=== PATIENT | female | born 1950 | race Two or more races ===

== ENCOUNTER → 2018-07-29 | Outpatient (CLI) | payer MEDICARE, OTHER ==
[2015-12-16 22:17] VITALS: BP 150/72
[~2018-07-29] MED LIST: ASPI81TA50 PO; ATOR20TA58 PO; CHOL2000 PO; CINN500C2 PO; CLOB15OI TP; DICL100G18 TP; ESTR42.53 VG; FESO8TAB PO; FEXO180T81 PO; IBUP-1060 PO; LISI1TAB5 PO; MELA3TAB2 PO; OMEP20CA9 PO; OMEP20TA8 PO; OXYB5TAB7 PO; OXYC-327 PO; SAXA5TAB PO
[2018-07-29 09:49] LABS: ALBUMIN 3.8 g/dL (3.4-5.0); CALCIUM 10.4 mg/dL (8.5-10.1); CREATININE 0.9 mg/dL (0.6-1.0); GFR 62.6; POTASSIUM 4.9 mmol/L (3.5-5.1)
[2018-07-29 10:02] LABS: BASO # 0.1 x10^3/uL (0.0-0.2); BASO % 1 % (0-3); EOS # 0.2 x10^3/uL (0.0-0.7); EOS % 3 % (0-3); HEMATOCRIT 39.4 % (36.0-47.0); HEMOGLOBIN 13.8 g/dL (12.0-15.5); LYMPH # 1.8 x10^3/uL (1.0-4.8); LYMPH % 25 % (24-48); MEAN CORPUSCULAR HEMOGLOBIN 31 pg (25-35); MEAN CORPUSCULAR HGB CONC 35 g/dL (31-37); MEAN CORPUSCULAR VOLUME 90 fL (79-100); MONO # 0.9 x10^3/uL (0.0-1.1); MONO % 12 % (0-9); NEUT # 4.3 x10^3uL (1.8-7.7); NEUT % 60 % (31-73); PLATELET COUNT 308 x10^3/uL (140-400); RED CELL DISTRIBUTION WIDTH 13.4 % (11.5-14.5); WHITE BLOOD COUNT 7.2 x10^3/uL (4.0-11.0)
[2018-07-29 10:16] LABS: PROTHROMBIN TIME PATIENT 12.1 SEC (11.7-14.0)
[2018-07-29 12:06] LABS: BILIRUBIN,URINE NEGATIVE (NEG); CLARITY,URINE CLEAR; COLOR,URINE YELLOW; NITRITE,URINE NEGATIVE (NEG); PH,URINE 5.5; PROTEIN,URINE NEGATIVE (NEG-TRACE); UROBILINOGEN,URINE 0.2 mg/dL (0.2 mg/dL)
[2018-07-29 12:14] LABS: BACTERIA,URINE 0 /HPF (0-FEW); RBC,URINE 0 /HPF (0-2); SQUAMOUS EPITHELIAL CELL,UR FEW /LPF
--- NOTE | 2018-07-29 12:29 | EKG ---
[facility] [address] [place] [address] Test Date: 2018-07-29 Test Time: 12:14:45 Pat Name: EUN GRAY Department: Room: Gender: F Flooring Sales Manager: : 1950 Requested By: JOCE LYNCH Order Number: [id number] Reading MD: Jayden Tubbs MD Measurements Intervals [place] Rate: 70 P: -14 IA: 162 QRS: 25 QRSD: 82 T: 40 QT: 386 QTc: 420 Interpretive Statements SINUS RHYTHM Electronically Signed On 08-01-2018 11:46:56 CDT by Jayden Tubbs MD
--- NOTE | 2018-07-29 13:15 | RAD ---
AP and Lateral Views of the Chest 07/29/2018 7:55 AM Indication: PRE OP FOR LEFT KNEE REPLACEMENT ON 08/13/18 Comparison: None Findings: There is no focal consolidation or infiltrate identified. The cardiomediastinal silhouette is within normal limits. There is no evidence of pneumothorax or pleural effusion. No acute osseous abnormalities are identified. Impression: No evidence of acute cardiopulmonary process. Electronically signed by: Luis Bailey MD (07/29/2018 1:11 PM) [id number]
[2018-07-29 23:11] LABS: HEMOGLOBIN A1C 6.8 % (4.8-5.6)
== END | disposition home or self-care (01) ==
LOC: SURGPAT 12:51
PROVIDERS: ATTEND Orthopaedic Surgery
DX: Z01.818 Encounter for other preprocedural examination (principal); M17.12 Unilateral primary osteoarthritis, left knee; I10 Essential (primary) hypertension
CPT/HCPCS: 36415; 71046; 80048; 81001; 82040; 82306; 83036; 85025; 85610; 85651; 85730; 87086; 87641; 93005

== ENCOUNTER → 2018-08-20 | Outpatient (CLI) | payer OTHER, MEDICARE ==
[2018-08-16 15:30] VITALS: BP 98/59
[~2018-08-20] MED LIST changes: +CELE200C PO; +TRAM50TA PO
--- NOTE | 2018-08-20 14:31 | RAD ---
Left lower extremity venous duplex study 08/20/2018 Clinical History: Lower extremity pain Technique: Using a combination of real time ultrasound imaging and color-flow and pulse Doppler imaging techniques, including spectral analysis, graded compression and augmentation, duplex evaluation of the deep venous system of the left lower extremity was performed. Multiple images were obtained. Findings: There is no sonographic evidence of deep venous thrombosis involving the visualized deep venous structures of the left lower extremity. Small left popliteal fossa cyst noted measuring 3.9 x 1.7 x 1.0 cm. Impression: No evidence of deep venous thrombosis involving the left lower extremity Electronically signed by: Luis Bailey MD (08/20/2018 2:27 PM) [id number]
== END | disposition home or self-care (01) ==
LOC: US 13:15
PROVIDERS: ATTEND Orthopaedic Surgery
DX: M79.662 Pain in left lower leg (principal); R22.42 Localized swelling, mass and lump, left lower limb
CPT/HCPCS: 93971

== ENCOUNTER → 2019-05-14 | Outpatient (CLI) | payer OTHER ==
[2018-08-16 15:30] VITALS: BP 98/59
[~2019-05-14] MED LIST changes: +LATA2.5D3 EACHEYE; +LISI-130 PO; +OMEP20CA10 PO; -OMEP20CA9 PO; -OXYC-327 PO; +OXYC1TAB19 PO
[2019-05-14 14:23] LABS: BILIRUBIN,URINE NEGATIVE (NEG); CLARITY,URINE CLEAR; COLOR,URINE YELLOW; NITRITE,URINE NEGATIVE (NEG); PH,URINE 5.5; PROTEIN,URINE NEGATIVE (NEG-TRACE); UROBILINOGEN,URINE 0.2 mg/dL (0.2 mg/dL)
[2019-05-14 14:24] LABS: BASO % 1 % (0-3); EOS # 0.3 x10^3/uL (0.0-0.7); EOS % 3 % (0-3); HEMOGLOBIN 14.5 g/dL (12.0-15.5); LYMPH # 1.6 x10^3/uL (1.0-4.8); LYMPH % 20 % (24-48); MEAN CORPUSCULAR HEMOGLOBIN 30 pg (25-35); MEAN CORPUSCULAR HGB CONC 35 g/dL (31-37); MEAN CORPUSCULAR VOLUME 88 fL (79-100); MONO # 0.7 x10^3/uL (0.0-1.1); MONO % 8 % (0-9); NEUT # 5.7 x10^3/uL (1.8-7.7); NEUT % 69 % (31-73); PLATELET COUNT 264 x10^3/uL (140-400); RED BLOOD COUNT 4.76 x10^6/uL (3.50-5.40); RED CELL DISTRIBUTION WIDTH 12.7 % (11.5-14.5); WHITE BLOOD COUNT 8.3 x10^3/uL (4.0-11.0)
[2019-05-14 14:30] LABS: CALCIUM 10.5 mg/dL (8.5-10.1); CREATININE 0.8 mg/dL (0.6-1.0); GFR 71.5; POTASSIUM 4.2 mmol/L (3.5-5.1); PROTHROMBIN TIME PATIENT 12.7 SEC (11.7-14.0)
[2019-05-14 14:33] LABS: BACTERIA,URINE MODERATE /HPF (0-FEW); RBC,URINE 0 /HPF (0-2); SQUAMOUS EPITHELIAL CELL,UR MANY /LPF
[2019-05-15 03:13] LABS: HEMOGLOBIN A1C 7.1 % (4.8-5.6)
== END | disposition home or self-care (01) ==
LOC: SURGPAT 13:13
PROVIDERS: ATTEND Orthopaedic Surgery
DX: Z01.818 Encounter for other preprocedural examination (principal); M17.11 Unilateral primary osteoarthritis, right knee
CPT/HCPCS: 36415; 80048; 81001; 82306; 83036; 85025; 85610; 85651; 85730; 87086; 87641

== ENCOUNTER → 2019-06-16 | Outpatient (CLI) | payer OTHER ==
[2019-06-06 13:06] VITALS: BP 147/72
[~2019-06-16] MED LIST changes: +ASPI325T11 PO; +LISI1TAB19 PO; -LISI1TAB5 PO; -MELA3TAB2 PO; +MELA3TAB56 PO; +MELO15TA23 PO; +OXYC1TAB15 PO
--- NOTE | 2019-06-16 15:50 | RAD ---
CLINICAL HISTORY: Right lower extremity swelling, right total knee arthroplasty COMPARISON: None available. TECHNIQUE: Ultrasound evaluation of the right lower extremity was performed from the groin to the upper calf with meneses scale, spectral and color doppler evaluation. FINDINGS: The right common femoral vein, and femoral vein, including the saphenous-femoral junction are normal in appearance. Color and spectral Doppler evaluation demonstrates normal spontaneous flow, augmentation and phasicity. The right popliteal vein and visualized calf veins also demonstrate normal compressibility and flow. IMPRESSION: No evidence for right lower extremity DVT Electronically signed by: Clement Cordero MD (06/16/2019 3:47 PM) [facility]
== END | disposition home or self-care (01) ==
LOC: US 12:25
PROVIDERS: ATTEND Physician Assistant
DX: M79.89 Other specified soft tissue disorders (principal); M17.11 Unilateral primary osteoarthritis, right knee
CPT/HCPCS: 93971

== ENCOUNTER 2019-06-24 02:44 | Emergency (ER) | payer OTHER, MEDICARE ==
[~2019-06-24] VITALS: Ht 160 cm; Wt 98.0 kg
--- NOTE | 2019-06-24 03:12 | PHYS DOC ---
Past Medical History Past Medical History: Diabetes-Type II Past Surgical History: No Surgical History Alcohol Use: None Drug Use: None Adult General Chief Complaint Chief Complaint: KNEE SWELLING HPI HPI 69-year-old female presents to the emergency department with complaints of right lower sternal area pain, swelling. Patient reports right total knee arthroplasty 3 weeks ago. She states she was seen in follow-up on June 02 dressings were removed at that time, Steri-Strips are in place. She had evidence of cellulitis at that time was prescribed antibiotic therapy. She states pain is worsened primarily popliteal and some swelling. She does have redness to her lower extremity. No fever. + nausea. She denies chest pain or SOB on exam. Review of Systems Review of Systems Constitutional: Denies fever, + chills Respiratory: Denies cough or shortness of breath [] Cardiovascular: No additional information not addressed in HPI [] GI: Denies abdominal pain, nausea, vomiting, bloody stools or diarrhea [] Musculoskeletal: right leg pain, + redness to skin, trace edema Integument: Denies rash or skin lesions [] Neurologic: Denies headache, focal weakness or sensory changes [] All other systems were reviewed and found to be within normal limits, except as documented in this note. Allergies Allergies Allergies Coded Allergies Type Severity Reaction Last Updated Verified hydrochlorothiazide Allergy Intermediate HYPERPARATHYROID DISEASE 06/03/19 Yes Physical Exam Physical Exam Constitutional: Well developed, well nourished, no acute distress, non-toxic appearance. [] HENT: Normocephalic, atraumatic, bilateral external ears normal, oropharynx moist, no oral exudates, nose normal. [] Cardiovascular:Heart rate regular rhythm, no murmur [] Lungs & Thorax: Bilateral breath sounds clear to auscultation [] Abdomen: Bowel sounds normal, soft, no tenderness, no masses, no pulsatile masses. [] Skin: Warm, dry, no erythema, no rash. [] Back: No tenderness, no CVA tenderness. [] Extremities: No tenderness, no cyanosis, no clubbing, ROM intact, no edema. [] Neurologic: Alert and oriented X 3, normal motor function, normal sensory fu nction, no focal deficits noted. [] Psychologic: Affect normal, judgement normal, mood normal. [] Current Patient Data Lab Values Laboratory Tests Test 06/24/19 03:05 White Blood Count 7.1 x10^3/uL (4.0-11.0) Red Blood Count 3.97 x10^6/uL (3.50-5.40) Hemoglobin 12.1 g/dL (12.0-15.5) Hematocrit 35.5 % (36.0-47.0) L Mean Corpuscular Volume 90 fL (79-100) Mean Corpuscular Hemoglobin 31 pg (25-35) Mean Corpuscular Hemoglobin Concent 34 g/dL (31-37) Red Cell Distribution Width 14.0 % (11.5-14.5) Platelet Count 411 x10^3/uL (140-400) H Neutrophils (%) (Auto) 59 % (31-73) Lymphocytes (%) (Auto) 22 % (24-48) L Monocytes (%) (Auto) 12 % (0-9) H Eosinophils (%) (Auto) 6 % (0-3) H Basophils (%) (Auto) 1 % (0-3) Neutrophils # (Auto) 4.2 x10^3/uL (1.8-7.7) Lymphocytes # (Auto) 1.5 x10^3/uL (1.0-4.8) Monocytes # (Auto) 0.9 x10^3/uL (0.0-1.1) Eosinophils # (Auto) 0.4 x10^3/uL (0.0-0.7) Basophils # (Auto) 0.1 x10^3/uL (0.0-0.2) Sodium Level 139 mmol/L (136-145) Potassium Level 4.1 mmol/L (3.5-5.1) Chloride Level 104 mmol/L (98-107) Carbon Dioxide Level 28 mmol/L (21-32) Anion Gap 7 (6-14) Blood Urea Nitrogen 19 mg/dL (7-20) Creatinine 0.9 mg/dL (0.6-1.0) Estimated GFR (Cockcroft-Gault) 62.5 BUN/Creatinine Ratio 21 (6-20) H Glucose Level 136 mg/dL (70-99) H Calcium Level 10.8 mg/dL (8.5-10.1) H Total Bilirubin 0.4 mg/dL (0.2-1.0) Aspartate Amino Transferase (AST) 19 U/L (15-37) Alanine Aminotransferase (ALT) 20 U/L (14-59) Alkaline Phosphatase 233 U/L (46-116) H Total Protein 7.1 g/dL (6.4-8.2) Albumin 3.3 g/dL (3.4-5.0) L Albumin/Globulin Ratio 0.9 (1.0-1.7) L Laboratory Tests 06/24/19 03:05 Laboratory Tests 06/24/19 03:05 EKG EKG [] Radiology/Procedures Radiology/Procedures [] Course & Med Decision Making Course & Med Decision Making Pertinent Labs and Imaging studies reviewed. (See chart for details) []69-year-old female presents to the emergency department with complaints of right lower sternal area pain, swelling. Patient reports right total knee arthroplasty 3 weeks ago. She states she was seen in follow-up on June 02 dressings were removed at that time, Steri-Strips are in place. She had evidence of cellulitis at that time was prescribed antibiotic therapy. She states pain is worsened primarily popliteal and some swelling. She does have redness to her lower extremity. No fever. + nausea. She denies chest pain or SOB on exam. Labs reviewed, white blood cell count within normal limits. Ultrasound performed of right lower extremity to rule out DVT. No evidence of DVT appreciated. Patient has underlying cellulitis inflammation, she is currently on antibiotic therapy. 1 g vancomycin IV provided in the emergency department. We'll plan for discharge home and follow-up as an outpatient with her orthopedic physician. Morphine 4 mg, Zofran 4 mg provided in the emergency department. Patient will be discharged home after antibiotic therapy. This was discussed with patient's family, they understood discharge plans. Dragon Disclaimer Dragon Disclaimer This electronic medical record was generated, in whole or in part, using a voice recognition dictation system. Departure Departure Impression: Primary Impression: Right leg pain Additional Impression: Cellulitis Disposition: 01 HOME, SELF-CARE Condition: STABLE Referrals: AMBER JIMENEZ MD (PCP) Patient Instructions: Cellulitis, [id number] Additional Instructions: Recommend follow up with PCP 3 - 5 days Call Ortho tomorrow for follow up appointment Return to the ER with worsening symptoms, intractable pain, fever, altered mental status Tylenol/Motrin as needed for pain Take antibioitics as prescribed Vancomycin 1gm given in the ER Problem Qualifiers DAGOBERTO PLATA MD Jun 24, 2019 03:12
[2019-06-24 03:21] LABS: BASO # 0.1 x10^3/uL (0.0-0.2); BASO % 1 % (0-3); EOS # 0.4 x10^3/uL (0.0-0.7); EOS % 6 % (0-3); HEMATOCRIT 35.5 % (36.0-47.0); HEMOGLOBIN 12.1 g/dL (12.0-15.5); LYMPH # 1.5 x10^3/uL (1.0-4.8); LYMPH % 22 % (24-48); MEAN CORPUSCULAR HEMOGLOBIN 31 pg (25-35); MEAN CORPUSCULAR HGB CONC 34 g/dL (31-37); MEAN CORPUSCULAR VOLUME 90 fL (79-100); MONO # 0.9 x10^3/uL (0.0-1.1); MONO % 12 % (0-9); NEUT # 4.2 x10^3/uL (1.8-7.7); NEUT % 59 % (31-73); PLATELET COUNT 411 x10^3/uL (140-400); RED BLOOD COUNT 3.97 x10^6/uL (3.50-5.40); WHITE BLOOD COUNT 7.1 x10^3/uL (4.0-11.0)
[2019-06-24 03:28] LABS: CALCIUM 10.8 mg/dL (8.5-10.1); CREATININE 0.9 mg/dL (0.6-1.0); GFR 62.5; POTASSIUM 4.1 mmol/L (3.5-5.1)
[2019-06-24 03:33] LABS: ALBUMIN 3.3 g/dL (3.4-5.0); ALBUMIN/GLOBULIN RATIO 0.9 (1.0-1.7); TOTAL BILIRUBIN 0.4 mg/dL (0.2-1.0); TOTAL PROTEIN 7.1 g/dL (6.4-8.2)
--- NOTE | 2019-06-24 04:05 | RAD ---
Examination: Right Lower Extremity Venous Doppler Ultrasound History: Right leg swelling Comparison: None Procedure: Solares scale, color flow 2D and spectal waveform analysis images are obtained with and without compression in the area of the common femoral vein, superficial femoral vein - femoral vein junction, main femoral vein (superficial femoral vein) and popliteal vein. Veins of the proximal calf are also imaged. Findings: There is normal duplex flow, color flow and compressibility of all visualized vein segments. No evidence of deep venous thrombus is present. Mild soft tissue edema identified in the right lower leg. 1.9 cm right inguinal lymph node identified. Impression: No evidence of DVT in the right lower extremity venous system. Electronically signed by: Glen Linn MD (06/24/2019 4:02 AM) [id number]
[2019-06-24] MEDS: MORPHINE SULFATE 4 MG/ML VIAL. IV ONE (04:46)
[2019-06-24] MEDS: VANCOMYCIN 1GM IVPB FOR OMNI 250 ML IV ONE (04:46)
[2019-06-24] MEDS: ONDANSETRON PF 4 MG/2 ML VIAL. IV ONE (04:46)
[2019-06-24 06:10] VITALS: BP 120/56
== END 2019-06-24 06:23 | disposition home or self-care (01) ==
LOC: ER 02:44
DX: L03.115 Cellulitis of right lower limb (principal); E11.9 Type 2 diabetes mellitus without complications; Z96.651 Presence of right artificial knee joint; Z88.8 Allergy status to other drugs, medicaments and biological substances
CPT/HCPCS: 36415; 80053; 85025; 93971; 96365; 96375; 99285; J2270; J2405; J3370

== ENCOUNTER → 2019-08-11 | Outpatient (CLI) | payer OTHER ==
[~2019-08-11] MED LIST changes: +CIPR500T94 PO; +OXYB5TAB10 PO; -OXYB5TAB7 PO; +SENN1TAB72 PO; +TRAZ-118 PO
[2019-08-11 10:06] LABS: BASO # 0.1 x10^3/uL (0.0-0.2); BASO % 1 % (0-3); EOS # 0.6 x10^3/uL (0.0-0.7); EOS % 8 % (0-3); HEMATOCRIT 39.2 % (36.0-47.0); HEMOGLOBIN 13.5 g/dL (12.0-15.5); LYMPH # 1.8 x10^3/uL (1.0-4.8); LYMPH % 24 % (24-48); MEAN CORPUSCULAR HEMOGLOBIN 31 pg (25-35); MEAN CORPUSCULAR HGB CONC 34 g/dL (31-37); MEAN CORPUSCULAR VOLUME 89 fL (79-100); MONO # 0.8 x10^3/uL (0.0-1.1); MONO % 10 % (0-9); NEUT # 4.4 x10^3/uL (1.8-7.7); NEUT % 57 % (31-73); PLATELET COUNT 325 x10^3/uL (140-400); RED BLOOD COUNT 4.43 x10^6/uL (3.50-5.40); RED CELL DISTRIBUTION WIDTH 13.1 % (11.5-14.5); WHITE BLOOD COUNT 7.8 x10^3/uL (4.0-11.0)
[2019-08-11 10:19] LABS: CALCIUM 10.1 mg/dL (8.5-10.1); CREATININE 0.9 mg/dL (0.6-1.0); GFR 62.5; POTASSIUM 4.6 mmol/L (3.5-5.1)
== END | disposition home or self-care (01) ==
LOC: LAB 09:33
PROVIDERS: ATTEND Physician Assistant
DX: L03.119 Cellulitis of unspecified part of limb (principal)
CPT/HCPCS: 36415; 80048; 85025; 85651; 86141

== ENCOUNTER 2019-08-12 11:29 | Observation (INO) | payer OTHER ==
[2019-08-12] VITALS (8 sets, daily range): BP systolic 94–151; BP diastolic 49–91
[~2019-08-12] VITALS: Ht 160 cm; Wt 99.3 kg
[~2019-08-12 11:29] MED LIST changes: +IV RINGERS,LACTATED 1000ML 1,000 ML IV SCH; +LIDOCAINE 1% PF 2 ML VIAL. ID PRN; +MORPHINE SULFATE 2 MG/ML VIAL. IV PRN; +ONDANSETRON PF 4 MG/2 ML VIAL. IV PRN; +PROCHLORPERAZINE 10 MG/2 ML VIAL. IV PRN; +fentaNYL PF VIAL 100 MCG/2 ML VIAL IV PRN
[2019-08-12] MEDS: INSULIN LISPRO 100 UNIT/ML 3ML VIAL for OP,RR ONLY. SQ PRN ×3 (12:16→14:43)
[2019-08-12] MEDS ORDERED: ONDANSETRON PF 4 MG/2 ML VIAL. ONE (13:53)
[2019-08-12] MEDS ORDERED: fentaNYL PF VIAL 100 MCG/2 ML VIAL ONE (13:53)
[2019-08-12] MEDS ORDERED: DEXAMETHASONE SOD PHOS 4 MG/ML VIAL ONE (13:53)
[2019-08-12] MEDS ORDERED: LIDOCAINE 2% PF 5 ML VIAL. ONE (13:53)
[2019-08-12] MEDS ORDERED: KETOROLAC 30 MG/ML VIAL. ONE ×2 (13:53→14:56)
[2019-08-12] MEDS ORDERED: PROPOFOL 20 ML IV ONE (13:53)
[2019-08-12] MEDS ORDERED: SEVOFLURANE 31 TO 60 MINUTES. IH ONE (14:56)
[2019-08-12] MEDS ORDERED: VANCOMYCIN 1 GM VIAL. ONE (15:07)
[2019-08-12] MEDS ORDERED: ceFAZolin SODIUM 1 GM VIAL ONE (15:48)
[2019-08-12] MEDS: fentaNYL PF VIAL 100 MCG/2 ML VIAL IV PRN ×2 (16:46→16:51)
--- NOTE | 2019-08-12 16:48 | PDOC4 ---
Operative Note Operative Note Date of Procedure: August 12, 2019 Pre-Op Diagnosis: Cutaneous abscess of right lower limb L02.415 Post-Op Diagnosis: same Procedure: Incision and drainage right knee CPT 97150 Surgeon: Joce Acharya MD Anesthesia: General EBL: 10 mL Complications: none Drains: none Findings: Traumatic appearing defect in the distal quadriceps tendon surgical repair. No obvious infection. Cultures taken. Specimens Obtained: Right knee synovial fluid, specimen cup sent for Gram stain, aerobic anaerobic fungal and AFB. Right knee synovial fluid ring top tubes sent for cell count with differential. Indications for Procedure: Christina had a right total knee arthroplasty June 03, 2019. She has been aggressive in physical therapy and achieved 130 degrees of flexion. She has had an area of eschar at the upper portion of the incision which had not fully lifted off. She had been started on antibiotics when seen in the office by Mr. Clay, and has received Cipro, and also one dose of Vancomycin. I saw her in the office yesterday, and the area where the eschar was at the upper incision has recently unroofed, with a small open wound in the skin and subcutaneous tissues over the distal quadriceps tendon. I recommended surgical exploration, incision and drainage, and intraoperative cultures off antibiotics. I had her stop antibiotics, although she only stopped these yesterday. I explained that this could represent a deep infection, in which case she will require explantation of all of the hardware, but I recommend initial exploration and drainage without plans for any removal, with intraoperative cultures, and then reassess whether explantation is needed in the future. She agrees with that plan and is not willing to proceed with explantation at this time. We talked about the potential risks of need for additional surgery and explantation, prolonged intravenous antibiotics for deep infection is present, but hopeful that this is simply a superficial wound problem without deep infection. All of her questions about surgery were answered and she desired to proceed. Procedure in Detail: The patient was identified in the preoperative holding area. The correct right knee was marked by me. The patient was taken to the operating room where general anesthesia was used. The patient was positioned supine on the operating table. Antibiotics were held until after cultures were taken. A timeout procedure was performed. A tourniquet was applied to the upper thigh. The limb was prepared in sterile fashion with Betadine. Sterile drapes were applied. A 10 mL syringe and 16-gauge needle were used to aspirate the knee joint under sterile technique. I only retrieved about 4 mL of pink watery fluid, and I divided this to be sent in a green top tube for cell count with differential, and into a specimen cup for Gram stain, and cultures including aerobic, anaerobic, fungal, and AFB. After cultures were taken, intravenous antibodies we re given. A tourniquet had been applied but was never inflated. The area of the eschar is 5 mm wide, and the eschar extends about 6 cm at the uppermost portion of the knee arthroplasty incision with only a 1 cm opening in the skin and subcutaneous tissue. I excised the edges including the eschar with a 15 blade scalpel, and then did digital exploration of the subcutaneous and distal quadriceps tendon. There is no purulent drainage or any odor. There is a traumatic appearing defect in the repair of the distal quadriceps tendon, perhaps due to the aggressive flexion she has been doing in therapy. It does not have the irregular edges typically seen with an infection, it simply looks like the sutures have been torn out. My suspicion is that she tore through some of the sutures of the distal quadriceps tendon capsule repair when doing range of motion, and that joint fluid then released into the subcutaneous space where it exited through the loose eschar. Deep infection is of course another possibility. I used the [employer] interpulse grocery store bagger and copious saline irrigation. Betadine lavage was used. The [employer] [place] interpulse grocery store bagger was used with saline again. Outer gloves were changed. 1 g of powdered vancomycin was placed in the open wound. The capsule was repaired with #1 Vicryl plus [id number] sutures. The subcutaneous tissues were closed with #2-0 Vicryl plus sutures. The skin was reapproximated with 3-0 nylon sutures. Acticoat and a NORMA dressing were applied. Needle and sponge counts were correct. There were no apparent complications. JOCE ACHARYA MD Aug 12, 2019 16:48
[2019-08-12] MEDS: HYDROmorphone 2 MG/ML VIAL IV PRN ×4 (17:00→17:31)
--- NOTE | 2019-08-12 17:01 | PDOC1 ---
History and Physical Date of Admission Date of Admission DATE: 08/12/19 TIME: 16:53 Identification/Chief Complaint Chief Complaint right knee incision Source Source: Chart review, Patient History of Present Illness History of Present Illness Christina is a 69 year old who had total knee arthroplasty by me in June. Her incision has always had an area of eschar about 5 mm wide at the upper portion of her incision. She has been doing aggressive physical therapy. Mr. Clay saw her in the office and started oral Cipro. The area of eschar drained fluid last week. I saw her in the office yesterday, and recommended stopping antibiotics, and that we take cultures. I discussed implant removal. I spoke to her about the potential risk of a deep infection and that she may need total explantation of the total knee arthroplasty. She is not willing to proceed with explantation at this time. I recommend a surgical incision and debridement and operative cultures off antibiotics. She agrees with that. I explained that if a deep infection is present she will ultimately require explantation. She understands that. She was admitted today for superficial incision, debridement and irrigation. Past Medical History Cardiovascular: HTN, Hyperlipidemia, Other GI: GERD Renal/: Urinary Incontinence Endocrine: Diabetes Past Surgical History Past Surgical History: Tubal Ligation, Tonsillectomy, Other Family History Family History: Cancer, Diabetes, Heart Disease Social History ALCOHOL: none Drugs: None Current Medications Current Medications Current Medications Ondansetron HCl (Zofran) 4 mg PRN Q6HRS PRN IV NAUSEA/VOMITING; Start 08/12/19 at 07:00; Stop 08/12/19 at 20:00 Fentanyl Citrate (Fentanyl 2ml Vial) 25 mcg PRN Q5MIN PRN IV MILD PAIN 1-3; Start 08/12/19 at 07:00; Stop 08/12/19 at 20:00 Fentanyl Citrate (Fentanyl 2ml Vial) 50 mcg PRN Q5MIN PRN IV MODERATE TO SEVERE PAIN; Start 08/12/19 at 07:00; Stop 08/12/19 at 20:00 Morphine Sulfate (Morphine Sulfate) 1 mg PRN Q10MIN PRN IV SEVERE PAIN 7-10; Start 08/12/19 at 07:00; Stop 08/12/19 at 20:00 Ringer's Solution 1,000 ml @ 30 mls/hr Q24H IV ; Start 08/12/19 at 07:00; Stop 08/12/19 at 18:59 Lidocaine HCl (Xylocaine-Mpf 1% 2ml Vial) 2 ml PRN 1X PRN ID PRIOR TO IV START; Start 08/12/19 at 07:00; Stop 08/12/19 at 20:00 Hydromorphone HCl (Dilaudid) 0.5 mg PRN Q10MIN PRN IV SEV PAIN, Second choice; Start 08/12/19 at 07:00; Stop 08/12/19 at 20:00 Prochlorperazine Edisylate (Compazine) 5 mg PACU PRN PRN IV NAUSEA, MRX1; Start 08/12/19 at 07:00; Stop 08/12/19 at 20:00 Insulin Human Lispro (HumaLOG VIAL for OP,RR ONLY) 0-10 units PRN Q1HR PRN SQ PER PROTOCOL Last administered on 08/12/19at 14:43; Start 08/12/19 at 12:15; Stop 08/13/19 at 12:14 Propofol 20 ml @ As Directed STK-MED ONCE IV ; Start 08/12/19 at 13:53; Stop 08/12/19 at 13:53; Status DC Dexamethasone Sodium Phosphate (Decadron) 4 mg STK-MED ONCE .ROUTE ; Start 08/12/19 at 13:53; Stop 08/12/19 at 13:53; Status DC Ketorolac Tromethamine (Toradol 30mg Vial) 30 mg STK-MED ONCE .ROUTE ; Start 08/12/19 at 13:53; Stop 08/12/19 at 13:53; Status DC Lidocaine HCl (Lidocaine Pf 2% Vial) 5 ml STK-MED ONCE .ROUTE ; Start 08/12/19 at 13:53; Stop 08/12/19 at 13:53; Status DC Ondansetron HCl (Zofran) 4 mg STK-MED ONCE .ROUTE ; Start 08/12/19 at 13:53; Stop 08/12/19 at 13:53; Status DC Fentanyl Citrate (Fentanyl 2ml Vial) 100 mcg STK-MED ONCE .ROUTE ; Start 08/12/19 at 13:53; Stop 08/12/19 at 13:54; Status DC Ketorolac Tromethamine (Toradol 30mg Vial) 30 mg STK-MED ONCE .ROUTE ; Start 08/12/19 at 14:56; Stop 08/12/19 at 14:57; Status DC Sevoflurane (Ultane) 30 ml STK-MED ONCE IH ; Start 08/12/19 at 14:56; Stop 08/12/19 at 14:57; Status DC Vancomycin HCl (Vancomycin) 1 gm STK-MED ONCE .ROUTE Last administered on 09/18at 15:59; Start 08/12/19 at 15:07; Stop 08/12/19 at 15:08; Status DC Cefazolin Sodium (Ancef) 1 gm STK-MED ONCE .ROUTE ; Start 08/12/19 at 15:48; Stop 08/12/19 at 15:49; Status DC Cefazolin Sodium/ Dextrose 50 ml @ 100 mls/hr 1X PREOP PRN IV Pre Op dose Last administered on 08/12/19at 15:53; Start 08/12/19 at 16:45; Status UNV Active Scripts Active Percocet 5-325 Mg Tablet (Oxycodone/Acetaminophen) 1 Each Tablet 1-2 Tab PO PRN Q4HRS PRN 14 Days Take 1-2 tablets by mouth every 4 hours as needed for pain. Reported Stool Softener Tablet (Sennosides/Docusate Sodium) 1 Each Tablet 1 Each PO DAILY Cipro (Ciprofloxacin Hcl) 500 Mg Tablet 500 Mg PO BID 7 Days Trazodone Hcl 50 Mg Tablet 25 Mg PO HS Aspirin Ec (Aspirin) 325 Mg Tablet.dr 1 Tab PO BID Meloxicam 15 Mg Tablet 1 Tab PO DAILY Latanoprost 2.5 Ml Drops 1 Drop EACHEYE QHS Onglyza (Saxagliptin Hcl) 5 Mg Tablet 1 Tab PO HS Lisinopril 40 Mg Tablet 1 Tab PO DAILY Clobetasol Propionate 15 Gm Oint...g. 1 Juliet TP PRN PRN Vitamin D (Cholecalciferol (Vitamin D3)) 2,000 Unit Capsule 2,000 Unit PO BID Tiffany Allergy (Fexofenadine Hcl) 180 Mg Tablet 180 Mg PO HS Toviaz (Fesoterodine Fumarate) 8 Mg Tab.er.24h 8 Mg PO DAILY Omeprazole 20 Mg Capsule.dr 20 Mg PO DAILY16 Atorvastatin Calcium 20 Mg Tablet 1 Tab PO HS Allergies Allergies: Coded Allergies: hydrochlorothiazide (Verified Allergy, Intermediate, HYPERPARATHYROID DISEASE, 08/12/19) metformin (Verified Allergy, Intermediate, 08/12/19) ROS General: No: Chills, Night Sweats Physical Exam General: Alert, Cooperative HEENT: Atraumatic Lungs: Normal air movement Heart: RRR Abdomen: Soft Extremities: Other (excellent range of motion of the total knee. No apparent effusion. There is an area of eschar at the upper portion of the incision 5 mm in width and 6 cm in length which is unroofed, and there is now exposed subcutaneous tissue. There is no active drainage at this time, no erythema and minimal tenderness.) Neuro: Normal speech, Sensation intact Psych/Mental Status: Mood NL Vitals Vitals Vital Signs Date Time Temp Pulse Resp B/P (MAP) Pulse Ox O2 Delivery O2 Flow Rate FiO2 08/12/19 16:27 Mask 10 08/12/19 12:04 97.2 79 20 162/74 97 97.2 Labs Labs Laboratory Tests Test 08/12/19 12:04 08/12/19 13:23 08/12/19 14:38 08/12/19 16:51 Glucose (Fingerstick) 162 mg/dL (70-99) 136 mg/dL (70-99) 144 mg/dL (70-99) 115 mg/dL (70-99) Laboratory Tests Test 08/12/19 12:04 08/12/19 13:23 08/12/19 14:38 08/12/19 16:51 Glucose (Fingerstick) 162 mg/dL (70-99) 136 mg/dL (70-99) 144 mg/dL (70-99) 115 mg/dL (70-99) VTE Prophylaxis Ordered VTE Prophylaxis Devices: Yes VTE Pharmacological Prophylaxi: Yes Assessment/Plan Assessment/Plan I recommended operative cultures, superficial incision and drainage of the open wound, and further decision making based on the operative cultures. She agrees with that plan. JOCE LYNCH MD Aug 12, 2019 17:01
[2019-08-12] MEDS ORDERED: BUPIVACAINE MPF 0.25% 10 ML VIAL. ONE (17:08)
[2019-08-12] MEDS ORDERED: DEXAMETHASONE SOD PHOS 20 MG/5 ML VIAL. ONE (17:08)
[2019-08-12] MEDS ORDERED: EPINEPHrine 1 MG/ML VIAL ONE (17:08)
[2019-08-12] MEDS ORDERED: MORPHINE SULFATE 2 MG/ML VIAL. IV PRN (17:45)
[2019-08-12] MEDS ORDERED: CALCIUM CARBONATE 500 MG TAB.CHEW PO PRN (17:45)
[2019-08-12] MEDS ORDERED: diphenhydrAMINE 50 MG/ML VIAL IV PRN (17:45)
[2019-08-12] MEDS ORDERED: 0.9 % SODIUM CHLORIDE 10 ML DISP.SYRIN. IV PRN (17:45)
[2019-08-12] MEDS ORDERED: ZOLPIDEM 5 MG TABLET. PO PRN (17:45)
[2019-08-12] MEDS ORDERED: METOCLOPRAMIDE HCL 10 MG/2 ML VIAL. IV PRN (17:45)
[2019-08-12] MEDS ORDERED: PROCHLORPERAZINE 5 MG TABLET. PO PRN (17:45)
[2019-08-12] MEDS ORDERED: fentaNYL PF VIAL 100 MCG/2 ML VIAL IV PRN ×2 (17:45)
[2019-08-12] MEDS ORDERED: oxyCODONE/APAP 5/325 1 TAB TABLET PO PRN (17:45)
[2019-08-12] MEDS ORDERED: DEXTROSE 50% 25 GM / 50ML DISP.SYRIN. IV PRN (17:45)
[2019-08-12] MEDS ORDERED: IV NORMAL SALINE 1000ML BAG 1,000 ML IV SCH (19:00)
[2019-08-12 19:52] LABS: BF CLARITY TURBID; BF COLOR RED; BF RBC COUNT 430000 /cmm (Not Established); BF SOURCE SYNOVIAL; BF WBC COUNT 4000 /cmm (Not Established)
[2019-08-12 19:53] LABS: BF MON % 1 %; BF PMN % 99 %
[2019-08-12] MEDS: oxyCODONE/APAP 5/325 1 TAB TABLET PO PRN (19:55)
[2019-08-12] MEDS ORDERED: traZODone 50 MG TABLET. PO SCH (21:00)
[2019-08-12] MEDS ORDERED: LINAGLIPTIN 5 MG TABLET PO SCH (21:00)
[2019-08-12] MEDS ORDERED: ATORVASTATIN CALCIUM 20 MG TABLET PO SCH (21:00)
[2019-08-12] MEDS ORDERED: CLOBETASOL EMOLLIENT 0.05% TOPICAL CREAM 15GM TUBE. TP PRN (21:00)
[2019-08-12] MEDS ORDERED: LATANOPROST 0.005% OPHTH SOLUTION 2.5ML BOTTLE. OU SCH (21:00)
[2019-08-12] MEDS: ASPIRIN ENTERIC COATED 325 MG TABLET.DR. PO SCH (21:08)
[2019-08-12] MEDS: OXYBUTYNIN CHLORIDE 5 MG TABLET PO SCH (21:09)
[2019-08-12] MEDS: MORPHINE SULFATE 4 MG/ML VIAL. IV PRN (21:10)
[2019-08-13] MEDS: MORPHINE SULFATE 4 MG/ML VIAL. IV PRN (00:30)
[2019-08-13 03:18] VITALS: BP 109/44
[2019-08-13] MEDS: ONDANSETRON ODT 4 MG TAB.RAPDIS. PO SCH ×3 (05:58→11:53)
[2019-08-13] MEDS: ONDANSETRON PF 4 MG/2 ML VIAL. IV SCH ×3 (05:58→11:53)
[2019-08-13] MEDS ORDERED: MAGNESIUM HYDROXIDE 2,400 MG/30 ML ORAL.SUSP. PO PRN (06:00)
[2019-08-13 07:00] VITALS: BP 114/46
[2019-08-13] MEDS ORDERED: FERROUS SULFATE 325 MG TABLET. PO SCH (08:00)
[2019-08-13] MEDS ORDERED: CETIRIZINE HCL 10 MG TABLET. PO SCH (09:00)
[2019-08-13] MEDS ORDERED: LISINOPRIL 20 MG TABLET PO SCH (09:00)
[2019-08-13] MEDS ORDERED: CHOLECALCIFEROL (VITAMIN D3) 1,000 UNIT TABLET PO SCH (09:00)
[2019-08-13] MEDS ORDERED: CELECOXIB 100 MG CAPSULE. PO SCH (09:00)
[2019-08-13] MEDS ORDERED: SENNOSIDES/DOCUSATE 8.6/50MG TABLET. PO SCH ×2 (09:00)
[2019-08-13] MEDS ORDERED: MULTIVITAMIN with MINERAL TABLET. PO SCH (09:00)
[2019-08-13] MEDS: ASPIRIN ENTERIC COATED 325 MG TABLET.DR. PO SCH (09:08)
[2019-08-13] MEDS: OXYBUTYNIN CHLORIDE 5 MG TABLET PO SCH ×2 (09:08→13:43)
[2019-08-13] MEDS: INSULIN LISPRO 300 UNITS/3 ML VIAL. SQ SCH ×2 (09:12→11:55)
[2019-08-13] MEDS: oxyCODONE/APAP 5/325 1 TAB TABLET PO PRN ×2 (10:08→15:24)
[2019-08-13 11:00] VITALS: BP 124/67
--- NOTE | 2019-08-13 12:06 | NUR ---
SW following for discharge planning. Chart reviewed, discussed with RN. Pt is from home. PT/OT has been ordered, SW awaiting PT/OT eval for discharge planning purposes. SW will continue to follow.
--- NOTE | 2019-08-13 15:41 | NUR ---
Pt. discharged to home, verbalized understanding of discharge instructions. R jordan villar with ste[facility].
[2019-08-13] MEDS ORDERED: BISACODYL 10 MG SUPP.RECT. PR PRN (16:00)
[2019-08-13] MEDS ORDERED: PANTOPRAZOLE 40 MG TABLET.DR. PO SCH (16:00)
[2019-08-13] MEDS ORDERED: ONDANSETRON ODT 4 MG TAB.RAPDIS. PO PRN (18:00)
[2019-08-13] MEDS ORDERED: ONDANSETRON PF 4 MG/2 ML VIAL. IV PRN (18:00)
== END 2019-08-13 14:30 | disposition home or self-care (01) ==
LOC: SURG 11:29 → 4 NORTH 16:48
PROVIDERS: ADMIT Orthopaedic Surgery; ATTEND Orthopaedic Surgery
DX: L02.415 Cutaneous abscess of right lower limb (principal); M00.9 Pyogenic arthritis, unspecified; Z96.651 Presence of right artificial knee joint
CPT/HCPCS: 27301; 82962; 87071; 87075; 87102; 87116; 89050; 96365; 96366; 96372; 96375; 96376; 97161; 97166; 97535; A7015; G0378; G0379; J0171; J0690; J0696; J1100; J1170; J1815; J2001; J2270; J2405; J2704; J3010; J3370; J3490; J7030; J1885; A4461; C1769

== ENCOUNTER 2019-08-22 09:07 | Emergency (ER) | payer MEDICARE, OTHER ==
[~2019-08-22] VITALS: Ht 160 cm; Wt 98.4 kg
[~2019-08-22 09:07] MED LIST changes: -IV RINGERS,LACTATED 1000ML 1,000 ML IV SCH; -LIDOCAINE 1% PF 2 ML VIAL. ID PRN; -MORPHINE SULFATE 2 MG/ML VIAL. IV PRN; -ONDANSETRON PF 4 MG/2 ML VIAL. IV PRN; -PROCHLORPERAZINE 10 MG/2 ML VIAL. IV PRN; -fentaNYL PF VIAL 100 MCG/2 ML VIAL IV PRN
[2019-08-22 09:19] VITALS: BP 189/98
[2019-08-22] MEDS ORDERED: LIDO:MAALOX 1:1 20 ML SINGLE DOSE. SWSW STA (09:40)
--- NOTE | 2019-08-22 10:01 | PHYS DOC ---
Past Medical History Past Medical History: Arthritis, Diabetes-Type II, GERD, High Cholesterol, Hypertension Additional Past Medical Histor: BLADDER INCONTINENCE, HYPERPARATHYROID BONE DISEASE, CELLULITIS Past Surgical History: Knee Replacement, Tonsillectomy, Tubal ligation Additional Past Surgical Histo: HEYDI. CARPAL TUNNEL & ELBOW RELEASE, DAYANARA IN RIGHT LEG Alcohol Use: Rarely Drug Use: None Adult General Chief Complaint Chief Complaint: GI PROBLEM HPI HPI Patient is a 69 year old female who presents with coughing since 8 AM. The patient states she has a history of acid reflux and woke up this morning with an intense acid taste the back for throat and she started choking on it and has been coughing ever since. She states that she thinks went down into her lungs. She rates her pain as 4 out of 10 in severity and sharp. She she takes omeprazole 20 mg once a day. Review of Systems Review of Systems Constitutional: Denies fever or chills [] Eyes: Denies change in visual acuity, redness, or eye pain [] HENT: Denies nasal congestion or sore throat [] Respiratory: Reports cough. Cardiovascular: No additional information not addressed in HPI [] GI: Denies abdominal pain, nausea, vomiting, bloody stools or diarrhea [] : Denies dysuria or hematuria [] Musculoskeletal: Denies back pain or joint pain [] Integument: Denies rash or skin lesions [] Neurologic: Denies headache, focal weakness or sensory changes [] Endocrine: Denies polyuria or polydipsia [] Complete systems were reviewed and found to be within normal limits, except as documented in this note. Current Medications Current Medications Current Medications Medications (Trade) Dose Ordered Sig/Ary Start Time Stop Time Status Last Admin Dose Admin Multi-Ingredient Mouthwash/Gargle (Gi Cocktail) 20 ml 1X STAT 08/22/19 09:40 08/22/19 09:43 DC 08/22/19 09:46 20 ML Allergies Allergies Allergies Coded Allergies Type Severity Reaction Last Updated Verified hydrochlorothiazide Allergy Intermediate HYPERPARATHYROID DISEASE 08/12/19 Yes metformin Allergy Intermediate 08/12/19 Yes Physical Exam Physical Exam Constitutional: Well developed, well nourished, no acute distress, non-toxic appearance. [] HENT: Normocephalic, atraumatic, bilateral external ears normal, oropharynx moist, no oral exudates, nose normal. [] Eyes: PERRLA, EOMI, conjunctiva normal, no discharge. [] Neck: Normal range of motion, no tenderness, supple, no stridor. [] Cardiovascular:Heart rate regular rhythm, no murmur [] Lungs & Thorax: Bilateral breath sounds clear to auscultation [] Abdomen: Bowel sounds normal, soft, no tenderness, no masses, no pulsatile masses. [] Skin: Warm, dry, no erythema, no rash. [] Back: No tenderness, no CVA tenderness. [] Extremities: No tenderness, no cyanosis, no clubbing, ROM intact, no edema. [] Neurologic: Alert and oriented X 3, normal motor function, normal sensory function, no focal deficits noted. [] Psychologic: Affect normal, judgement normal, mood normal. [] Current Patient Data Vital Signs Vital Signs Date Time Temp Pulse Resp B/P (MAP) Pulse Ox O2 Delivery O2 Flow Rate FiO2 08/22/19 09:19 98.4 82 20 189/98 (128) 93 Room Air 98.4 EKG EKG [] Radiology/Procedures Radiology/Procedures [][facility] [address] [place] [address] IMAGING REPORT Signed PATIENT: EUN GRAY ACCOUNT: [id number] : 1950 LOCATION: ER AGE: 69 SEX: F EXAM STATUS: REG ER ORD. PHYSICIAN: GEORGES MOE APRN REASON: cough PROCEDURE: CHEST PA & LATERAL AP and Lateral Views of the Chest 08/22/2019 9:40 AM Indication: Cough Comparison: 2 views of the chest July 29, 2020 Findings: Mild relative increase in interstitial thickening in the interim. This could represent mild edema. An atypical or viral infectious process could have this appearance. No pneumothorax or effusion is seen. Heart size is normal. Bony thorax is unchanged. Impression: Mild increase in interstitial thickening which could represent mild edema, or an atypical/viral infectious process Electronically signed by: Luis Galvan MD (08/22/2019 10:21 AM) [id number] DICTATED and SIGNED BY: LUIS GALVAN MD DATE: 08/22/19 1021 Course & Med Decision Making Course & Med Decision Making Pertinent Labs and Imaging studies reviewed. (See chart for details) Will give GI cocktail and get chest x-ray. Chest x-ray suggests possible atypical infectious process, will place on D oxycycline. Dragon Disclaimer Dragon Disclaimer This electronic medical record was generated, in whole or in part, using a voice recognition dictation system. Departure Departure Impression: Primary Impression: Pneumonia Disposition: HOME, SELF-CARE Condition: STABLE Referrals: AMBER JIMENEZ MD (PCP) Patient Instructions: Pneumonia, Adult Additional Instructions: Thank you for visiting [facility]. We appreciate you trusting us with your care. If any additional problems come up don't hesitate to return to visit us. Please follow up with your primary care provider so they can plan additional care if needed and know about the problem that you had. If symptoms worsen come back to the Emergency Department. Any concerning symptoms that start such as chest pain, shortness of air, weakness or numbness on one side of the body, running high fevers or any other concerning symptoms return to the ER. Please be aware that diabetes can cause your sugars to fluctuate while you are sick. This can cause additional issues. Please check your sugars often to ensure they are staying in a safe range and if you are on insulin please take as instructed by your primary care doctor. If you have any questions about this please let us know or contact your primary care provider for additional instruction about taking your insulin while you are sick. If you get concerned regarding your sugar while at home please do not hesitate to come back to the ER. You have been prescribed an antibiotic today to help fight your infection. Please take all of the antibiotic as directed. If after 48 hours the infection is not improving, please return for more care. If the infection worsens, return to ER for additional care. Scripts Doxycycline Hyclate (DOXYCYCLINE HYCLATE) 100 Mg Tablet 1 TAB PO BID for 7 Days, #14 TAB Prov: GEORGES MOE APRN 08/22/19 Problem Qualifiers Primary Impression: Pneumonia Pneumonia type: due to unspecified organism Laterality: bilateral Lung location: lower lobe of lung Qualified Codes: J18.9 - Pneumonia, unspecified organism GEORGES MOE APRN Aug 22, 2019 10:01
--- NOTE | 2019-08-22 10:24 | RAD ---
AP and Lateral Views of the Chest 08/22/2019 9:40 AM Indication: Cough Comparison: 2 views of the chest July 29, 2020 Findings: Mild relative increase in interstitial thickening in the interim. This could represent mild edema. An atypical or viral infectious process could have this appearance. No pneumothorax or effusion is seen. Heart size is normal. Bony thorax is unchanged. Impression: Mild increase in interstitial thickening which could represent mild edema, or an atypical/viral infectious process Electronically signed by: Luis Bailey MD (08/22/2019 10:21 AM) [id number]
[2019-08-22] MEDS ORDERED: DOXY100T PO (10:36)
== END 2019-08-22 10:47 | disposition home or self-care (01) ==
LOC: ER 09:07
DX: J18.9 Pneumonia, unspecified organism (principal); K21.9 Gastro-esophageal reflux disease without esophagitis; E78.00 Pure hypercholesterolemia, unspecified; E11.9 Type 2 diabetes mellitus without complications; I10 Essential (primary) hypertension; Z88.8 Allergy status to other drugs, medicaments and biological substances
CPT/HCPCS: 71046; 99284

== ENCOUNTER → 2019-10-13 | Outpatient (CLI) | payer OTHER ==
[~2019-10-13] MED LIST changes: +DOXY100T PO; -OMEP20CA10 PO; +OMEP20CA16 PO
== END | disposition home or self-care (01) ==
LOC: LAB 13:54
PROVIDERS: ATTEND Orthopaedic Surgery
DX: Z96.651 Presence of right artificial knee joint (principal)
CPT/HCPCS: 36415; 85651; 86140